=== PATIENT | male | born 1945 | race African-American/Black ===

== ENCOUNTER → 2017-11-24 | Outpatient (CLI) | payer MEDICARE, OTHER ==
[~2017-11-24] MED LIST: ADVAI250I PO; ALBU0.086 NEB; ASPI1TAB57 PO; CINN500C2 PO; CINN500T PO; GLIM4 PO; GLIM4TAB PO; GLUCTAB OR; HYDR12.57 PO; LISI20 PO; LOSA50TA PO; METF750T PO; MUCI600T PO; MUCI60TA5 PO; MULT-65 PO; OMEGCAP2 PO; OMEP20TA39 PO; OMEP20TA93 PO; OXYC-360 PO; OXYC1TAB63 PO; PRAS10TA PO; TAB-TAB PO; VITATAB25 PO
--- NOTE | 2017-11-24 12:22 | RADRPT ---
EXAM DATE/TIME: 11/24/2017 10:16 [place] COMPARISON: No previous studies available for comparison. INDICATIONS : Evaluate for pneumonia, pneumothorax, or communicable disease. Pre op for hernia surgery on 12/01/2017. MEDICAL HISTORY : Hypertension. Diabetes mellitus type II. Myocardial infarction. SURGICAL HISTORY : Cardiac stents. ENCOUNTER: Initial ACUITY: 1 day PAIN SCORE: 0/10 LOCATION: Bilateral chest FINDINGS: PA and lateral views of the chest demonstrate the lungs to be symmetrically aerated without evidence of mass, infiltrate or effusion. The cardiomediastinal contours are unremarkable. Osseous structure s are intact. CONCLUSION: No acute disease. Robert Irene MD on November 24, 2017 at 12:18 Board Certified Radiologist. This report was verified electronically.
--- NOTE | 2017-11-24 17:46 | EKG ---
Date Performed: 11/24/2017 Time Performed: 10:00:34 PTAGE: 72 years EKG: Sinus bradycardia. Normal ECG except for rate PREVIOUS TRACING : 03/03/2002 10.03 Compared to prior tracing no significant change DOCTOR: Jazmine Gottlieb Interpretating Date/Time 11/24/2017 17:45:16
== END ==
LOC: CPRE 09:16
PROVIDERS: ATTEND Colon & Rectal Surgery
DX: Z01.810 Encounter for preprocedural cardiovascular examination (principal); Z01.811 Encounter for preprocedural respiratory examination; Z79.01 Long term (current) use of anticoagulants
CPT/HCPCS: 71046; 93005

== ENCOUNTER 2017-12-01 09:02 | Inpatient (IN) | payer MEDICARE, OTHER ==
[~2017-12-01] VITALS: Ht 180.3 cm; Wt 83.3 kg
[~2017-12-01 09:02] MED LIST changes: -ADVAI250I PO; -ALBU0.086 NEB; -CINN500T PO; -GLIM4 PO; -GLUCTAB OR; -LISI20 PO; -MUCI600T PO; -OMEGCAP2 PO; -OMEP20TA39 PO; -OXYC-360 PO; -TAB-TAB PO; -VITATAB25 PO
[2018-03-02] MEDS ORDERED: ROCURONIUM INJ 50 MG/5 ML SYRINGE IV PUSH ONE (12:00)
[2018-03-02] MEDS ORDERED: ONDANSETRON HCL 4 MG/2 ML VIAL IV ONE (12:00)
[2018-03-02] MEDS ORDERED: DEXAMETHASONE SOD PHOS 4 MG/ML VIAL IV ONE (12:00)
[2018-03-02] MEDS ORDERED: NEOSTIGMINE 5 MG/5 ML SYRINGE IV PUSH ONE (12:00)
[2018-03-02] MEDS ORDERED: ePHEDrine/NS 25 MG/5 ML SYRINGE IV ONE (12:00)
[2018-03-02] MEDS ORDERED: PROPOFOL 200 MG/20 ML AMP IV ONE (12:00)
[2018-03-02] MEDS ORDERED: GLYCOPYRROLATE 1 MG/5 ML SYRINGE IV PUSH ONE (12:00)
[2018-03-02] MEDS ORDERED: PHENYLEPH/NS 1000 MCG/10 ML SYR IV ONE (12:00)
[2018-03-02] MEDS ORDERED: LIDOCAINE HCL 1% PF 5 ML SYRINGE OTHER ONE (12:00)
[2018-03-02] MEDS ORDERED: DEXT 5%-NACL 0.9% 1000 ML INJ 1,000 ML IV SCH (12:00)
[2018-03-02] MEDS ORDERED: ALVIMOPAN 12 MG CAPSULE - On Call PO SCH (12:15)
[2018-03-02] MEDS ORDERED: LACTATED RINGER'S 1000 ML IV PRN (12:15)
[2018-03-02] MEDS ORDERED: ceFAZolin 1,000 MG/NS 100 ML IV SCH ×2 (12:15)
[2018-03-02] MEDS ORDERED: CHLORHEXIDINE GLUCONATE 2 % 1 PACK (2 CLOTHS) TOPICAL PRN (12:15)
[2018-03-02] MEDS ORDERED: SODIUM CHLORID 0.9% 500 ML IV PRN (12:15)
[2018-03-02] MEDS ORDERED: METOPROLOL TARTRATE 25 MG TAB PO PRN (12:15)
[2018-03-02] MEDS ORDERED: POVIDONE IODINE 5% (ANTISEPSIS KIT) 4 APPLICATIONS EACH NARE PRN (12:15)
[2018-03-02] MEDS ORDERED: METRONIDAZOLE 500 MG/100 ML ISONTONIC SOLN IV SCH (12:15)
[2018-03-02 13:15] LABS: AUTOMATED NEUTROPHIL # 1.5 TH/MM3 (1.8-7.7); BASOPHIL % 0.3 % (0.0-2.0); EOSINOPHIL # 0.2 TH/MM3 (0-0.4); EOSINOPHIL % 4.7 % (0.0-4.0); HEMATOCRIT 41.1 % (39.0-51.0); HEMOGLOBIN 13.8 GM/DL (13.0-17.0); LYMPH % 59.5 % (9.0-44.0); LYMPHOCYTE # 3.2 TH/MM3 (1.0-4.8); MEAN CELL VOLUME 89.2 FL (80.0-100.0); MEAN CORPUSCULAR HGB CONC 33.6 % (32.0-36.0); MEAN PLATELET VOLUME 7.8 FL (7.0-11.0); MONO % 7.2 % (0.0-8.0); MONOCYTE # 0.4 TH/MM3 (0-0.9); NEUT % 28.3 % (16.0-70.0); PLATELET COUNT 203 TH/MM3 (150-450); RED BLOOD COUNT 4.61 MIL/MM3 (4.50-5.90); RED CELL DISTRIBUTION WIDTH 13.9 % (11.6-17.2); WHITE BLOOD COUNT 5.4 TH/MM3 (4.0-11.0)
--- NOTE | 2018-03-02 13:34 | PD.HP.UP ---
H&P Update Note The Pre-Admit History and Physical Examination regarding the above named patient was reviewed (including, but not limited to, vital signs, heart, lungs, co-morbid conditions), and upon re-examination it is noted that: the patient's condition has not significantly changed since the last examination. Tristin Finley MD Mar 02, 2018 13:34
[2018-03-02] MEDS ORDERED: LIDOCAINE 1%/EPINEPHrine 1:100,000 SOLN 30 ML VIAL ONE (13:57)
[2018-03-02] MEDS ORDERED: BUPIVACAINE/EPINEPHRINE 0.5% 50 ML VIAL ONE (13:57)
[2018-03-02] MEDS ORDERED: ACETAMINOPHEN 1000 MG/100 ML 100 ML IV ONE (14:00)
[2018-03-02] MEDS ORDERED: HYDROmorphone HCL PF 2 MG/ML VIAL ONE ×2 (14:01→17:31)
[2018-03-02] MEDS ORDERED: SUGAMMADEX SODIUM 200 MG/2 ML VIAL IV PUSH ONE (15:40)
[2018-03-02] MEDS ORDERED: DO NOT ADM ANY ANTICOAGULANT DRUGS PRN (17:00)
[2018-03-02] MEDS ORDERED: POTASSIUM CHLOR 40 MEQ PREMIX 100 ML IV PRN (17:00)
[2018-03-02] MEDS ORDERED: NALOXONE HCL 0.4 MG/ML AMP IV PUSH PRN ×2 (17:00)
[2018-03-02] MEDS ORDERED: ACETAMINOPHEN/HYDROcodone 325 MG/5 MG TAB PO PRN (17:00)
[2018-03-02] MEDS ORDERED: BENZOCAINE 6 MG/MENTHOL 10 MG LOZENGE BUCCAL PRN (17:00)
[2018-03-02] MEDS ORDERED: ONDANSETRON HCL 4 MG/2 ML VIAL IV PUSH PRN (17:00)
[2018-03-02] MEDS ORDERED: ENALAPRILAT 2.5 MG/2 ML VIAL IV PUSH PRN (17:00)
[2018-03-02] MEDS ORDERED: ACETAMINOPHEN 325 MG TAB PO PRN (17:00)
[2018-03-02] MEDS ORDERED: POTASSIUM CHLOR 20 MEQ PREMIX 100 ML IV PRN (17:00)
[2018-03-02] MEDS ORDERED: ENALAPRILAT 1.25 MG/ML VIAL IV PUSH PRN (17:00)
[2018-03-02] MEDS ORDERED: MIDAZOLAM HCL 2 MG/2 ML VIAL ONE (17:07)
[2018-03-02] MEDS: D5-NS + KCL 20 MEQ INJ 1,000 ML IV SCH ×2 (17:15→21:22)
[2018-03-02] MEDS: KETOROLAC TROMETHAMINE 30 MG/ML (IVP) VIAL IVP PRN (17:45)
[2018-03-02] MEDS: HYDROmorphone HCL PCA 6 MG/30 ML IV SCH (17:55)
[2018-03-02] MEDS ORDERED: Post-op Orders (for Pharmacy) XX ONE (18:00)
[2018-03-02 20:00] VITALS: BP 159/94; PULSE 65; PULSE 67; RESP 18; TEMP 98.3; O2SAT 100
[2018-03-02 21:00] VITALS: PULSE 64
[2018-03-02] MEDS: PCA - TOTAL MG DILAUDID DELIVERED PER SHIFT OTHER SCH (21:19)
[2018-03-02] MEDS: METOCLOPRAMIDE HCL 10 MG/2 ML VIAL IVS SCH (21:21)
[2018-03-02] MEDS: metroNIDAZOLE 500 MG INJ 100 ML IV SCH (21:22)
[2018-03-02 22:00] VITALS: PULSE 62
[2018-03-02] MEDS ORDERED: PCA - TOTAL MG MORPHINE DELIVERED PER SHIFT SCH (22:00)
[2018-03-02 23:00] VITALS: PULSE 62
[2018-03-03] VITALS (23 sets, daily range): BP systolic 130–157; BP diastolic 69–87; PULSE 60–82; RESP 16–19; TEMP 98.2–99; O2SAT 97–100
[2018-03-03] MEDS: HYDROmorphone HCL PCA 6 MG/30 ML IV SCH (02:32)
[2018-03-03] MEDS: D5-NS + KCL 20 MEQ INJ 1,000 ML IV SCH ×3 (02:33→20:27)
[2018-03-03] MEDS: PCA - TOTAL MG DILAUDID DELIVERED PER SHIFT OTHER SCH ×3 (05:09→23:30)
[2018-03-03] MEDS: metroNIDAZOLE 500 MG INJ 100 ML IV SCH ×2 (05:51→12:59)
[2018-03-03 06:52] LABS: AUTOMATED NEUTROPHIL # 7.1 TH/MM3 (1.8-7.7); BASOPHIL % 0.1 % (0.0-2.0); HEMATOCRIT 42.7 % (39.0-51.0); HEMOGLOBIN 14.2 GM/DL (13.0-17.0); LYMPH % 11.2 % (9.0-44.0); MEAN CELL VOLUME 90.6 FL (80.0-100.0); MEAN CORPUSCULAR HEMOGLOBIN 30.1 PG (27.0-34.0); MEAN CORPUSCULAR HGB CONC 33.2 % (32.0-36.0); MEAN PLATELET VOLUME 7.6 FL (7.0-11.0); MONO % 7.3 % (0.0-8.0); MONOCYTE # 0.6 TH/MM3 (0-0.9); NEUT % 81.4 % (16.0-70.0); PLATELET COUNT 220 TH/MM3 (150-450); RED BLOOD COUNT 4.71 MIL/MM3 (4.50-5.90); WHITE BLOOD COUNT 8.7 TH/MM3 (4.0-11.0)
[2018-03-03 07:12] LABS: BICARBONATE 24.9 MEQ/L (21.0-32.0); CALCIUM 8.5 MG/DL (8.5-10.1); CREATININE 1.41 MG/DL (0.60-1.30)
[2018-03-03] MEDS ORDERED: PANTOPRAZOLE SODIUM 40 MG VIAL IVP PRN (09:00)
[2018-03-03] MEDS ORDERED: ALVIMOPAN 12 MG CAPSULE - Post-op dosing PO SCH (09:00)
[2018-03-03] MEDS: PANTOPRAZOLE SOD 40 MG DELAYED RELEASE TAB PO SCH ×2 (09:37→11:32)
[2018-03-03] MEDS: METOCLOPRAMIDE HCL 10 MG/2 ML VIAL IVS SCH ×2 (09:37→20:24)
--- NOTE | 2018-03-03 11:07 | HHI.PR ---
Subjective Remarks C/R Surg POD #1 afebrile, VSS UO good JW min Objective - Vital Signs Date Time Temp Pulse Resp B/P (MAP) Pulse Ox O2 Delivery O2 Flow Rate FiO2 03/03/18 06:00 70 03/03/18 05:09 18 03/03/18 04:00 98.3 138/82 (100) 100 03/02/18 18:30 Nasal Cannula 4 Result Diagram: 03/03/1860503/03/18605 Objective Remarks PE alert Abd - soft, some induration, wound dry A/P Assessment and Plan Imp: stable post-op OOB decr IVF tx to floor Tristin Finley MD Mar 03, 2018 11:07
--- NOTE | 2018-03-03 12:00 | MP ---
cc: Tristin Finley MD DATE OF OPERATION: 03/02/2018 DATE OF PROCEDURE: 03/02/2018 PREOPERATIVE DIAGNOSIS: Multiple ventral hernias. PROCEDURE PERFORMED: Exploratory laparotomy with repair of multiple ventral hernias with insertion of Marlex mesh. POSTOPERATIVE DIAGNOSIS: Multiple ventral hernias. SURGEON: Tristin Finley MD [employer]ESFOR[employer] SPECIALIST: Conor Wilson MD DESCRIPTION OF PROCEDURE: The patient was placed in the supine position. After adequate general anesthesia, his abdomen was prepped with Betadine solution and draped in the usual sterile fashion. With Dr. Wilson's assistance, the previous upper abdominal transverse incision was reopened, entering hernia sacs in the subcutaneous tissue in at least 2-3 areas along the incision. The hernia sacs were opened and then the bowel dissected free from the parietal peritoneum. There were several very tight adhesions lower down in the abdomen and these were also freed, untwisting the small bowel. Finally, the abdominal space was further defined. No other major adhesions were noted. No signs of any small-bowel obstruction was seen. Next, subcutaneous flaps were raised above and below the incision, excising the attenuated fascia in the hernia sacs back to more healthy tissue. Rather lengthy dissection was needed to gain mobility of the flaps. After adequate debridement, the abdominal incision was able to be closed primarily, closing the abdominal wall, reapproximating the respective fascial layers with #1 running PDS sutures. After the second layer of closure, a piece of Marlex mesh was fashioned over the repair and sutured in place with a running Prolene suture around the circumference and several Vicryl fascial tacks to hold it in place. The wound area washed copiously with normal saline. Hemostasis achieved. Two Brad-Jiménez drains placed into the subcutaneous tissues and brought out through stab wounds in the right side of the incision and secured to the skin with nylon sutures. The subcutaneous tissues were then tacked to the midline with interrupted Vicryl sutures, and the skin closed with surgical hao. Wound area washed with normal saline and dried, sterile dressing of Telfa and gauze applied. The patient tolerated the procedure quite well and was brought to the recovery room in stable condition. Sponge and needle counts were correct at the end of the procedure. MD EDWARDO Mayers/KD , 11:43 AM , 11:59 AM
[2018-03-03] MEDS ORDERED: PILL SPLITTER OTHER PRN (12:15)
[2018-03-03] MEDS: LOSARTAN 50 MG TAB PO SCH (13:00)
[2018-03-03] MEDS: metFORMIN HCL 500 MG TAB PO SCH (20:22)
[2018-03-03] MEDS: ALVIMOPAN 12 MG CAPSULE PO SCH (20:22)
[2018-03-04 00:43] VITALS: PULSE 61
[2018-03-04] MEDS: HYDROmorphone HCL PCA 6 MG/30 ML IV SCH (03:15)
[2018-03-04 03:16] VITALS: BP 139/83; PULSE 65; RESP 18; TEMP 98.6; O2SAT 96
[2018-03-04] MEDS: KETOROLAC TROMETHAMINE 30 MG/ML (IVP) VIAL IVP PRN ×2 (05:22→20:46)
[2018-03-04] MEDS: PCA - TOTAL MG DILAUDID DELIVERED PER SHIFT OTHER SCH ×2 (06:00→22:22)
[2018-03-04] MEDS: D5-NS + KCL 20 MEQ INJ 1,000 ML IV SCH ×2 (06:48→10:15)
[2018-03-04 07:35] LABS: AUTOMATED NEUTROPHIL # 6.8 TH/MM3 (1.8-7.7); BASOPHIL % 0.1 % (0.0-2.0); EOSINOPHIL % 0.3 % (0.0-4.0); HEMATOCRIT 37.4 % (39.0-51.0); HEMOGLOBIN 12.3 GM/DL (13.0-17.0); LYMPH % 20.6 % (9.0-44.0); MEAN CELL VOLUME 91.4 FL (80.0-100.0); MEAN CORPUSCULAR HEMOGLOBIN 30.1 PG (27.0-34.0); MEAN PLATELET VOLUME 7.7 FL (7.0-11.0); MONO % 8.3 % (0.0-8.0); MONOCYTE # 0.8 TH/MM3 (0-0.9); NEUT % 70.7 % (16.0-70.0); PLATELET COUNT 181 TH/MM3 (150-450); RED BLOOD COUNT 4.09 MIL/MM3 (4.50-5.90); RED CELL DISTRIBUTION WIDTH 14.3 % (11.6-17.2); WHITE BLOOD COUNT 9.6 TH/MM3 (4.0-11.0)
[2018-03-04 07:57] LABS: BICARBONATE 28.7 MEQ/L (21.0-32.0); CALCIUM 8.2 MG/DL (8.5-10.1); CREATININE 1.08 MG/DL (0.60-1.30)
[2018-03-04 08:22] VITALS: BP 137/83; PULSE 72; RESP 18; TEMP 98.7; O2SAT 98
[2018-03-04] MEDS: metFORMIN HCL 500 MG TAB PO SCH ×2 (10:14→20:45)
[2018-03-04] MEDS: PANTOPRAZOLE SOD 40 MG DELAYED RELEASE TAB PO SCH (10:14)
[2018-03-04] MEDS: HYDROCHLOROTHIAZIDE 12.5 MG CAP PO SCH (10:14)
[2018-03-04] MEDS: LOSARTAN 50 MG TAB PO SCH (10:14)
[2018-03-04] MEDS: ALVIMOPAN 12 MG CAPSULE PO SCH ×2 (10:15→20:45)
[2018-03-04] MEDS: METOCLOPRAMIDE HCL 10 MG/2 ML VIAL IVS SCH ×2 (10:15→20:46)
[2018-03-04] MEDS: ASPIRIN EC 81 MG TABEC PO SCH (10:15)
[2018-03-04 15:00] VITALS: BP 144/82; PULSE 76; RESP 16; TEMP 98.7; O2SAT 98
[2018-03-04 19:28] VITALS: BP 155/89; RESP 19; TEMP 99.4; O2SAT 97
--- NOTE | 2018-03-04 19:52 | HHI.PR ---
Subjective Remarks C/R Surg POD #2 afebrile, VSS UO good JW min Objective - Vital Signs Date Time Temp Pulse Resp B/P (MAP) Pulse Ox O2 Delivery O2 Flow Rate FiO2 03/04/18 19:28 99.4 19 155/89 (111) 97 03/04/18 15:00 76 03/02/18 18:30 Nasal Cannula 4 Result Diagram: 03/04/18 0604 03/04/18 0604 Objective Remarks PE alert Abd - soft, some induration, wound dry A/P Assessment and Plan Imp: OOB decr IVF start PO Tristin Finley MD Mar 04, 2018 19:52
[2018-03-04 23:35] VITALS: BP 150/92; PULSE 67; RESP 18; TEMP 98.9; O2SAT 96
[2018-03-05 03:40] VITALS: BP 150/92; PULSE 67; RESP 18; TEMP 98.7; O2SAT 97
[2018-03-05] MEDS: PCA - TOTAL MG DILAUDID DELIVERED PER SHIFT OTHER SCH ×2 (06:03→14:00)
[2018-03-05 07:50] VITALS: BP 169/96; PULSE 69; RESP 18; TEMP 98.9; O2SAT 97
[2018-03-05] MEDS: LOSARTAN 50 MG TAB PO SCH (09:25)
[2018-03-05] MEDS: PANTOPRAZOLE SOD 40 MG DELAYED RELEASE TAB PO SCH (09:25)
[2018-03-05] MEDS: ALVIMOPAN 12 MG CAPSULE PO SCH ×2 (09:25→20:59)
[2018-03-05] MEDS: metFORMIN HCL 500 MG TAB PO SCH ×2 (09:26→21:00)
[2018-03-05] MEDS: ASPIRIN EC 81 MG TABEC PO SCH (09:26)
[2018-03-05] MEDS: METOCLOPRAMIDE HCL 10 MG/2 ML VIAL IVS SCH ×2 (09:26→20:59)
[2018-03-05] MEDS: HYDROCHLOROTHIAZIDE 12.5 MG CAP PO SCH (09:27)
[2018-03-05 11:00] VITALS: BP 152/88; PULSE 97; RESP 16; TEMP 98.6; O2SAT 97
[2018-03-05 15:00] VITALS: BP 138/87; PULSE 75; RESP 16; TEMP 98.5; O2SAT 99
[2018-03-05] MEDS: D5-NS + KCL 20 MEQ INJ 1,000 ML IV SCH (17:45)
[2018-03-05 20:00] VITALS: BP 155/89; PULSE 73; RESP 20; TEMP 98.3; O2SAT 98
[2018-03-05] MEDS: ACETAMINOPHEN/HYDROcodone 325 MG/5 MG TAB PO PRN (21:22)
--- NOTE | 2018-03-05 21:27 | HHI.PR ---
Subjective Remarks C/R Surg POD #3 afebrile, VSS UO good JW min +BM Objective - Vital Signs Date Time Temp Pulse Resp B/P (MAP) Pulse Ox O2 Delivery O2 Flow Rate FiO2 03/05/18 15:00 98.5 75 16 138/87 (104) 99 03/02/18 18:30 Nasal Cannula 4 Result Diagram: 03/04/18 0604 03/04/18 0604 Objective Remarks PE alert Abd - soft, some induration, wound dry less tympany A/P Assessment and Plan Imp: OOB decr IVF start PO,adv dc plans dc Tristin Espino MD Mar 05, 2018 21:27
[2018-03-06] VITALS (7 sets, daily range): BP systolic 122–155; BP diastolic 75–91; PULSE 59–93; RESP 18; TEMP 97.6–98.4; O2SAT 96–99
[2018-03-06] MEDS: ASPIRIN EC 81 MG TABEC PO SCH (08:52)
[2018-03-06] MEDS: LOSARTAN 50 MG TAB PO SCH (08:52)
[2018-03-06] MEDS: METOCLOPRAMIDE HCL 10 MG/2 ML VIAL IVS SCH ×2 (08:52→20:49)
[2018-03-06] MEDS: ACETAMINOPHEN/HYDROcodone 325 MG/5 MG TAB PO PRN ×4 (08:53→21:51)
[2018-03-06] MEDS: metFORMIN HCL 500 MG TAB PO SCH ×2 (08:53→20:51)
[2018-03-06] MEDS: HYDROCHLOROTHIAZIDE 12.5 MG CAP PO SCH (08:53)
[2018-03-06] MEDS: PANTOPRAZOLE SOD 40 MG DELAYED RELEASE TAB PO SCH (08:53)
[2018-03-06] MEDS: D5-NS + KCL 20 MEQ INJ 1,000 ML IV SCH (10:11)
[2018-03-06] MEDS: ALVIMOPAN 12 MG CAPSULE PO SCH ×2 (10:31→20:50)
--- NOTE | 2018-03-06 12:05 | HHI.PR ---
Subjective Remarks SQ JW drainage increased some. No Nor V. Having BMs Objective Vital Signs Date Time Temp Pulse Resp B/P (MAP) Pulse Ox O2 Delivery O2 Flow Rate FiO2 03/06/18 11:44 97.6 59 18 136/79 (98) 99 03/06/18 08:36 98.4 62 18 143/84 (103) 98 03/06/18 04:00 Room Air 03/06/18 04:00 98.0 70 18 155/91 (112) 97 03/06/18 00:00 98.4 81 18 150/88 (108) 96 03/06/18 00:00 Room Air 03/05/18 20:00 98.3 73 20 155/89 (111) 98 03/05/18 15:00 98.5 75 16 138/87 (104) 99 03/05/18 14:00 16 I/O 03/05/18 03/05/18 03/05/18 03/06/18 03/06/18 03/06/18 07:00 15:00 23:00 07:00 15:00 23:00 Intake Total 240 ml 720 ml 1320 ml 240 ml Output Total 550 ml 1680 ml 1055 ml 125 ml Balance -310 ml -960 ml 265 ml 115 ml Intake Oral 240 ml 720 ml 720 ml 240 ml IV Total 600 ml Output Urine Total 500 ml 1600 ml 1000 ml 125 ml Drainage Total 50 ml 80 ml 55 ml # Bowel Movements 1 2 Result Diagram: 03/04/18 0604 03/04/18 0604 Objective Remarks VS-S Abd: wound clean. JPs serosanguinous. Assessment and Plan Assessment and Plan Stable POD#4 Plan to D/C tomorrow with or without drains depending on outputs. Conor Wilson MD Mar 06, 2018 12:05
[2018-03-07 00:49] VITALS: BP 143/86; PULSE 60; RESP 18; TEMP 98.3; O2SAT 98
[2018-03-07] MEDS: D5-NS + KCL 20 MEQ INJ 1,000 ML IV SCH (03:05)
[2018-03-07 04:51] VITALS: BP 127/77; PULSE 60; RESP 16; TEMP 98.4; O2SAT 97
[2018-03-07] MEDS: ACETAMINOPHEN/HYDROcodone 325 MG/5 MG TAB PO PRN ×2 (04:53→11:47)
[2018-03-07] MEDS: METOCLOPRAMIDE HCL 10 MG/2 ML VIAL IVS SCH (07:00)
[2018-03-07 08:09] VITALS: BP 131/91; PULSE 60; RESP 18; TEMP 97.9; O2SAT 98
[2018-03-07] MEDS: LOSARTAN 50 MG TAB PO SCH (08:13)
[2018-03-07] MEDS: ALVIMOPAN 12 MG CAPSULE PO SCH (08:13)
[2018-03-07] MEDS: metFORMIN HCL 500 MG TAB PO SCH (08:13)
[2018-03-07] MEDS: ASPIRIN EC 81 MG TABEC PO SCH (08:13)
[2018-03-07] MEDS: HYDROCHLOROTHIAZIDE 12.5 MG CAP PO SCH (08:13)
[2018-03-07] MEDS: PANTOPRAZOLE SOD 40 MG DELAYED RELEASE TAB PO SCH (08:13)
--- NOTE | 2018-03-07 11:34 | HHI.DCPOC ---
Discharge Care Plan Diagnosis: (1) Hernia of anterior abdominal wall Your Health Problems Are: Incision/Drains Appetite Changes Irregular Bowel Function Exercise Tolerance Goals to Promote Your Health * To prevent worsening of your condition and complications * To maintain your health at the optimal level Directions to Meet Your Goals Take your medications as prescribed Follow your dietary instruction Follow activity as directed Keep your appointments as scheduled Take your immunizations and boosters as scheduled If your symptoms worsen call your PCP, if no PCP go to Urgent Care Center or Emergency Room Smoking is Dangerous to Your Health. Avoid second hand smoke Call the 24-hour hour crisis hotline for domestic abuse at Conor Wilson MD Mar 07, 2018 11:34
== END 2018-03-07 15:00 | disposition home or self-care (01) | DRG 355 ==
LOC: HSDI 03-02 11:21 → HCIS 03-02 18:36 → HCIN 03-06 08:14
PROVIDERS: ADMIT Colon & Rectal Surgery; ATTEND Colon & Rectal Surgery
PROC: 0WUF0JZ Supplement Abdominal Wall with Synthetic Substitute, Open Approach (ICD-10-PCS; principal; 2018-03-02 14:32)
DX: K43.9 Ventral hernia without obstruction or gangrene (principal); E11.9 Type 2 diabetes mellitus without complications; I10 Essential (primary) hypertension; Z91.040 Latex allergy status; Z86.010 Personal history of colon polyps; Z79.84 Long term (current) use of oral hypoglycemic drugs
CPT/HCPCS: 80048; 85025; 86850; 86900; 86901; 94150; C1781; J0131; J0690; J1100; J1170; J1885; J2250; J2370; J2405; J2710; J2765; J3010; J3480; J7120